=== PATIENT | male | born 2000 | race Caucasian/White ===

== ENCOUNTER 2024-10-25 18:22 | Emergency (ER) | payer MEDICAID ==
[~2024-10-25] VITALS: Ht 165.1 cm; Wt 80.9 kg
[2024-10-25 18:25] VITALS: O2SAT 99
[2024-10-25 18:59] VITALS: BP 123/76; PULSE 97; RESP 18; TEMP 37; O2SAT 98
== END 2024-10-25 21:27 | disposition home or self-care (01) ==
LOC: EDBD 18:22 → ER 18:22
DX: T16.1XXA Foreign body in right ear, initial encounter (principal); W44.G1XA Audio device entering into or through a natural orifice, initial encounter; Y93.89 Activity, other specified; Y92.89 Other specified places as the place of occurrence of the external cause; Y99.8 Other external cause status
CPT/HCPCS: 69200; 99284